=== PATIENT | female | born 1980 | race Caucasian/White ===

== ENCOUNTER 2018-08-02 05:30 | Day surgery (SDC) | payer BC ==
[2018-07-31 09:01] LABS: BASOPHILS 0.3 % (0-2); EOSINOPHILS 6.2 % (0-7); HEMATOCRIT 39.9 % (36.0-48.0); HEMOGLOBIN 13.1 g/dL (12-16); IMMATURE GRANULOCYTES 0.3 % (0-5); LYMPHOCYTES 29.5 % (15-50); MCH 30.6 pg (26.0-34.0); MCHC 32.8 g/dL (31.0-37.0); MCV 93.2 fL (80.0-100.0); MEAN PLATELET VOLUME 10.7 fL (7.4-10.4); MONOCYTES 7.6 % (2-11); NEUTROPHILS 56.1 % (40-80); PLATELET COUNT 230 10x3/uL (130-400); RBC 4.28 10x6/uL (4.00-5.40); RDW 12.5 % (11.5-14.5); WBC 7.3 10x3/uL (4.8-10.8)
[2018-07-31 09:10] LABS: CALC OSMOLALITY 277 mosm/kg (275-300); CALCIUM 8.6 mg/dL (8.5-10.1); CARBON DIOXIDE 24.9 mmol/L (21.0-32.0); CHLORIDE - SERUM 105 mmol/L (98-107); CREATININE - SERUM 0.7 mg/dL (0.6-1.3); GLUCOSE 99 mg/dL (74-106); POTASSIUM - SERUM 4.8 mmol/L (3.5-5.1); SODIUM 139 mmol/L (136-145); UREA NITROGEN 13 mg/dL (7-18); eGFR NON AFRICAN AMERICAN > 90 mL/min (90-120)
[~2018-08-02] VITALS: Ht 170.2 cm; Wt 66.2 kg
--- NOTE | ~2018-08-02 | OP ---
PATIENT NAME: MARGUERITE BOTELLO MEDICAL RECORD: [id number] :[birth year] LOCATION:D.OPS ADMISSION DATE: SURGEON: EVANGELISTA GORE MD DATE OF OPERATION: 08/02/2018 PREOPERATIVE DIAGNOSES: 1. Pelvic pain. 2. Abnormal uterine bleeding. 3. Endometriosis. POSTOPERATIVE DIAGNOSES: 1. Pelvic pain. 2. Abnormal uterine bleeding. 3. Endometriosis. PROCEDURE: Complex laparoscopic lysis of adhesions. SURGEON: Evangelista Gore MD CO-SURGEON: Dr. Hoffman and Dr. Cm. REPORT OF PROCEDURE: The patient was in the operating room at the time of consultation for thick pelvic adhesions of the rectum to the posterior aspect of the uterus. At the time of my entering the case, the patient already had three 5-mm trocars throughout the abdomen. At this point, I started dissection of the dense adhesions off the posterior aspect of the uterus. The adhesions were the peritoneum and the anterior aspect of the mid rectum. There was a very difficult dissection as there was hardly any plane at all between the rectum and the uterus. Eventually with dissection laterally, I was able to find a plane on the more distal aspect of the rectum and I could trace it back up to the uterus and rectum and was eventually able to find the area of tissue which appeared safe for resection. Once I did this, we had the area freed up distal to the cervix and this gave room for Dr. Hoffman to be able to continue the surgery. At this point, Dr. Cm entered the room and while he continues some dissection of the pelvis, I have inserted some anal dilators to assure there was no sign of any injury to the rectum. With manipulation of the rectum with the anal dilators in place, we did not see any evidence of any injury being present. At this point, we removed ourselves from the case and allowed Dr. Hoffman to continue with the laparoscopic hysterectomy. TRANSINT:[id number] Voice Confirmation ID: [id number] DOCUMENT ID: [id number] EVANGELISTA GORE MD CC: [id number] DICTATION DATE: 08/04/181646 ARCHITECTURAL DRAFTSMAN: 08/04/182230 [facility] 08/02/18 [address] [place] [address]
[~2018-08-02 05:30] MED LIST: ATIVAN1 MG PO; CELEXA20 MG PO; CYMBALTA30 MG PO; IBUPROFEN800 MG PO; MAXALT10 MG PO
[2018-08-02 06:21] VITALS: Ht 170.2 cm; Wt 66.2 kg
[2018-08-02 06:43] LABS: HCG URINE NEGATIVE (NEGATIVE)
== END 2018-08-02 17:20 | disposition home or self-care (01) ==
LOC: D.OPS 05:30 → D.PAN 07:30 → D.OPS 07:30
PROVIDERS: Obstetrics & Gynecology
DX: N85.2 Hypertrophy of uterus (principal); N88.2 Stricture and stenosis of cervix uteri; N70.11 Chronic salpingitis; N83.292 Other ovarian cyst, left side; N84.0 Polyp of corpus uteri; D25.9 Leiomyoma of uterus, unspecified; N93.8 Other specified abnormal uterine and vaginal bleeding; N80.3 Endometriosis of pelvic peritoneum; N73.6 Female pelvic peritoneal adhesions (postinfective); Z01.812 Encounter for preprocedural laboratory examination

== ENCOUNTER 2018-08-08 22:20 | Inpatient (IN) | payer BC ==
[~2018-08-08] VITALS: Ht 170.2 cm; Wt 66.4 kg
--- NOTE | ~2018-08-08 | MORECARE ---
CASE MANAGEMENT DISCHARGE SUMMARY PATIENT: MARGUERITE BOTELLO UNIT: [id number] ADM DATE: 08/09/18 AGE: 38 : [birth year] SEX: F ROOM/BED: D.2232 AUTHOR: NANCY,DOC PHYSICIAN: REFERRING PHYSICIAN: ZAMZAM SINGH MD DATE OF SERVICE: 08/14/18 Discharge Plan Patient Name: MARGUERITE BOTELLO Facility: [facility]:[place] : 1980 Planned Disposition: Home Anticipated Discharge Date: 08/12/18 Discharge Date: 08/11/2018 Expected LOS: 3 Initial Reviewer: [id number] Initial Review Date: 08/10/2018 Generated: 08/14/18 3:47 pm Comments DCP- Discharge Planning Updated by [email or web address]: Luiza Herndon on 08/10/18 7:[address] Patient Name: MARGUERITE BOTELLO Admission Status: ER Accout number: [id number] Admission Date: 08-09-2018 : 1980 Admission Diagnosis: Attending: ZAMZAM SINGH Current LOS: 1 Anticipated DC Date: 08-12-2018 Planned Disposition: Home Primary Insurance: [employer] O Discharge Planning Comments: CM MET WITH PATIENT AND HER MOTHER (CARMEN) REGARDING D/C NEEDS AND PLANS. PATIENTS MOTHER WILL DRIVE PATIENT HOME AT DISCHARGE. PATIENT WILL BE STAYING WITH HER MOTHER. PATIENT STATED SHE IS INDEPENDENT WITH HER CARE AND HAS NO DME. PATIENTS PCP IS DR. ZAMZAM SINGH AND USES [facility] [address] FOR HER PHARMACY. PATIENT REFUSED HOME HEALTH AT THIS TIME. CM WILL CONTINUE TO FOLLOW PATIENT WITH D/C NEEDS AND PLANS. [facility] [address] CARMEN SUAREZ ([facility] [place]) [phone] Kayaking Instructor: Luiza Herndon DCPIA - Discharge Planning Initial Assessment Updated by [email or web address]: Luiza Herndon on 08/10/18 8:32 pm * Is the patient Alert and Oriented? Yes * How many steps to enter\exit or inside your home? * PCP DR. ZAMZAM SINGH * Pharmacy [facility] [address] * Preadmission Environment Home Alone * ADLs Independent * Equipment None * List name and contact numbers for known caregivers / representatives who currently or will assist patient after discharge: CARMEN SUAREZ (MOTHER) [phone] * Verbal permission to speak to the caregivers and representatives has been obtained from the patient. Yes * Community resources currently utilized None * Additional services required to return to the preadmission environment? Yes * Can the patient safely return to the preadmission environment? Yes * Has this patient been hospitalized within the prior 30 days at any hospital? No Last DP export: 08/10/18 7:37 Patient Name: MARGUERITE BOTELLO Page [id number] at 1447 All edits/amendments must be made on the electronic document DICTATION DATE: 08/14/181446 RIGGING ENGINEER: KRISTY 08/14/181446 RPT#: [id number] DC DATE:08/11/18 STATUS: DIS IN [facility] [address] [place] [address] END OF REPORT
--- NOTE | ~2018-08-08 | MORECARE ---
CASE MANAGEMENT DISCHARGE SUMMARY PATIENT: MARGUERITE BOTELLO UNIT: [id number] ADM DATE: 08/09/18 AGE: 38 : [birth year] SEX: F ROOM/BED: D.2232 AUTHOR: RACHEL CRUZ PHYSICIAN: REFERRING PHYSICIAN: ZAMZAM SINGH MD DATE OF SERVICE: 08/10/18 Discharge Plan Patient Name: MARGUERITE BOTELLO Facility: [facility]:[place] : 1980 Planned Disposition: Home Anticipated Discharge Date: 08/12/18 Discharge Date: Expected LOS: 3 Initial Reviewer: [email or web address] Initial Review Date: 08/10/2018 Generated: 08/10/18 9:31 pm Patient Name: MARGUERITE BOTELLO Page 20493 at 2030 All edits/amendments must be made on the electronic document DICTATION DATE: 08/10/182030 HOSTEL PARENT: KRISTY 08/10/182030 RPT#: [id number] DC DATE: STATUS: ADM IN [facility] [address] [place] [address] END OF REPORT
--- NOTE | ~2018-08-08 | MORECARE ---
CASE MANAGEMENT DISCHARGE SUMMARY PATIENT: MARGUERITE BOTELLO UNIT: [id number] ADM DATE: 08/09/18 AGE: 38 : [birth year] SEX: F ROOM/BED: D.2232 AUTHOR: NANCY,DOC PHYSICIAN: REFERRING PHYSICIAN: ZAMZAM SINGH MD DATE OF SERVICE: 08/10/18 Discharge Plan Patient Name: MARGUERITE BOTELLO Facility: [facility]:[place] : 1980 Planned Disposition: Home Anticipated Discharge Date: 08/12/18 Discharge Date: Expected LOS: 3 Initial Reviewer: [email or web address] Initial Review Date: 08/10/2018 Generated: 08/10/18 9:37 pm Comments DCP- Discharge Planning Updated by [email or web address]: Luiza Herndon on 08/10/18 7:[address] Patient Name: MARGUERITE BOTELLO Admission Status: ER Accout number: [id number] Admission Date: 08-09-2018 : 1980 Admission Diagnosis: Attending: ZAMZAM SINGH Current LOS: 1 Anticipated DC Date: 08-12-2018 Planned Disposition: Home Primary Insurance: [employer] O Discharge Planning Comments: CM MET WITH PATIENT AND HER MOTHER (CARMEN) REGARDING D/C NEEDS AND PLANS. PATIENTS MOTHER WILL DRIVE PATIENT HOME AT DISCHARGE. PATIENT WILL BE STAYING WITH HER MOTHER. PATIENT STATED SHE IS INDEPENDENT WITH HER CARE AND HAS NO DME. PATIENTS PCP IS DR. ZAMZAM SINGH AND USES [facility] [address] FOR HER PHARMACY. PATIENT REFUSED HOME HEALTH AT THIS TIME. CM WILL CONTINUE TO FOLLOW PATIENT WITH D/C NEEDS AND PLANS. [facility] [address] CARMEN SUAREZ ([facility] [place] [phone] Technical Operator: Luiza Herndon DCPIA - Discharge Planning Initial Assessment Updated by [email or web address]: Luiza Herndon on 08/10/18 8:32 pm * Is the patient Alert and Oriented? Yes * How many steps to enter\exit or inside your home? * PCP DR. ZAMZAM SINGH * Pharmacy [facility] [address] * Preadmission Environment Home Alone * ADLs Independent * Equipment None * List name and contact numbers for known caregivers / representatives who currently or will assist patient after discharge: CARMEN SUAREZ (MOTHER) [phone] * Verbal permission to speak to the caregivers and representatives has been obtained from the patient. Yes * Community resources currently utilized None * Additional services required to return to the preadmission environment? Yes * Can the patient safely return to the preadmission environment? Yes * Has this patient been hospitalized within the prior 30 days at any hospital? No Last DP export: 08/10/18 7:31 Patient Name: MARGUERITE BOTELLO Page 83624 at 2038 All edits/amendments must be made on the electronic document DICTATION DATE: 08/10/182036 BIOLOGY MANAGER: KRISTY 08/10/182036 RPT#: [id number] DC DATE: STATUS: ADM IN [facility] [address] [place] [address] END OF REPORT
[2018-08-08 23:07] LABS: BASOPHILS 0.2 % (0-2); EOSINOPHILS 1.1 % (0-7); HEMATOCRIT 32.7 % (36.0-48.0); HEMOGLOBIN 10.9 g/dL (12-16); IMMATURE GRANULOCYTES 0.5 % (0-5); LYMPHOCYTES 7.9 % (15-50); MCH 30.3 pg (26.0-34.0); MCHC 33.3 g/dL (31.0-37.0); MCV 90.8 fL (80.0-100.0); MEAN PLATELET VOLUME 9.5 fL (7.4-10.4); MONOCYTES 8.9 % (2-11); NEUTROPHILS 81.4 % (40-80); RDW 12.2 % (11.5-14.5); WBC 19.7 10x3/uL (4.8-10.8)
[2018-08-08 23:12] LABS: PLATELET COUNT 462 10x3/uL (130-400)
[2018-08-08 23:22] LABS: ALBUMIN 2.6 g/dL (3.4-5.0); ANION GAP 16.3 mmol/L (8-16); BILIRUBIN - TOTAL 0.18 mg/dL (0.2-1.3); CALCIUM 8.8 mg/dL (8.5-10.1); CREATININE - SERUM 0.9 mg/dL (0.6-1.3); POTASSIUM - SERUM 4.3 mmol/L (3.5-5.1); PROTEIN - SERUM 7.5 g/dL (6.4-8.2)
[2018-08-09] VITALS (7 sets, daily range): BP systolic 98–138; BP diastolic 60–69; BMI 22.9
[2018-08-09 00:45] LABS: APPEARANCE CLEAR (CLEAR); COLOR YELLOW (YELLOW); SPECIFIC GRAVITY 1.005 (1.005-1.020)
[2018-08-09 00:46] LABS: BILIRUBIN NEGATIVE (NEGATIVE); GLUCOSE NEGATIVE (NEGATIVE); KETONE NEGATIVE (NEGATIVE); NITRITE NEGATIVE (NEGATIVE); PROTEIN NEGATIVE (NEGATIVE); UROBILINOGEN NORMAL (NORMAL)
[2018-08-09 00:54] LABS: BACTERIA FEW /hpf (NONE SEEN); EPITHELIAL CELLS 0-5 /hpf (0-5); MUCUS <1+ /lpf (NONE SEEN); RED CELLS - URINE 0-5 /hpf (0-5)
[2018-08-09 18:00] LABS: BASOPHILS 0.2 % (0-2); EOSINOPHILS 2.1 % (0-7); HEMATOCRIT 29.7 % (36.0-48.0); HEMOGLOBIN 9.4 g/dL (12-16); IMMATURE GRANULOCYTES 0.6 % (0-5); LYMPHOCYTES 17.3 % (15-50); MCH 29.5 pg (26.0-34.0); MCHC 31.6 g/dL (31.0-37.0); MEAN PLATELET VOLUME 9.4 fL (7.4-10.4); MONOCYTES 10.7 % (2-11); NEUTROPHILS 69.1 % (40-80); PLATELET COUNT 401 10x3/uL (130-400); RBC 3.19 10x6/uL (4.00-5.40); RDW 12.6 % (11.5-14.5); WBC 17.5 10x3/uL (4.8-10.8)
[2018-08-09 18:14] LABS: MCV 93.1 fL (80.0-100.0)
[2018-08-10] VITALS: BP 108/59
[2018-08-10 04:00] VITALS: BP 95/56
[2018-08-10 08:09] LABS: BASOPHILS 0.1 % (0-2); EOSINOPHILS 2.6 % (0-7); HEMATOCRIT 28.5 % (36.0-48.0); HEMOGLOBIN 9.2 g/dL (12-16); IMMATURE GRANULOCYTES 0.5 % (0-5); LYMPHOCYTES 22.5 % (15-50); MCH 29.5 pg (26.0-34.0); MCHC 32.3 g/dL (31.0-37.0); MCV 91.3 fL (80.0-100.0); MEAN PLATELET VOLUME 9.1 fL (7.4-10.4); MONOCYTES 8.8 % (2-11); NEUTROPHILS 65.5 % (40-80); PLATELET COUNT 444 10x3/uL (130-400); RBC 3.12 10x6/uL (4.00-5.40); RDW 12.7 % (11.5-14.5); WBC 14.6 10x3/uL (4.8-10.8)
[2018-08-10 08:17] LABS: CALCIUM 8.3 mg/dL (8.5-10.1); CARBON DIOXIDE 23.4 mmol/L (21.0-32.0); CHLORIDE - SERUM 107 mmol/L (98-107); CREATININE - SERUM 0.8 mg/dL (0.6-1.3); POTASSIUM - SERUM 4.1 mmol/L (3.5-5.1); SODIUM 141 mmol/L (136-145); eGFR NON AFRICAN AMERICAN 85 mL/min (90-120)
[2018-08-10 08:18] LABS: CALC OSMOLALITY 276 mosm/kg (275-300); GLUCOSE 84 mg/dL (74-106); UREA NITROGEN 5 mg/dL (7-18)
[2018-08-10 09:00] VITALS: BP 115/71
[2018-08-10 12:00] VITALS: BP 104/55
[2018-08-10 16:00] VITALS: BP 129/90
[2018-08-10 16:04] VITALS: Ht 170.2 cm; Wt 66.4 kg
[2018-08-10 20:00] VITALS: BP 103/50
[2018-08-11 04:00] VITALS: BP 107/60
[2018-08-11 06:17] LABS: CALC OSMOLALITY 281 mosm/kg (275-300); CARBON DIOXIDE 22.4 mmol/L (21.0-32.0); CHLORIDE - SERUM 108 mmol/L (98-107); CREATININE - SERUM 0.7 mg/dL (0.6-1.3); GLUCOSE 92 mg/dL (74-106); POTASSIUM - SERUM 4.1 mmol/L (3.5-5.1); SODIUM 143 mmol/L (136-145); UREA NITROGEN 5 mg/dL (7-18); eGFR NON AFRICAN AMERICAN > 90 mL/min (90-120)
[2018-08-11 06:30] LABS: BASOPHILS 0.3 % (0-2); EOSINOPHILS 4.9 % (0-7); HEMATOCRIT 25.9 % (36.0-48.0); HEMOGLOBIN 8.4 g/dL (12-16); IMMATURE GRANULOCYTES 0.8 % (0-5); LYMPHOCYTES 35.7 % (15-50); MCH 29.5 pg (26.0-34.0); MCHC 32.4 g/dL (31.0-37.0); MCV 90.9 fL (80.0-100.0); MEAN PLATELET VOLUME 9.6 fL (7.4-10.4); NEUTROPHILS 49.3 % (40-80); PLATELET COUNT 439 10x3/uL (130-400); RBC 2.85 10x6/uL (4.00-5.40); RDW 12.7 % (11.5-14.5)
[2018-08-11 06:39] LABS: WBC 9.9 10x3/uL (4.8-10.8)
[2018-08-11 08:51] VITALS: BP 104/48
[2018-08-11] MEDS ORDERED: IBUPROFEN800 MG PO (17:17)
[2018-08-11] MEDS ORDERED: PERCOCET 5-3251 TAB PO (17:18)
[2018-08-11] MEDS ORDERED: LEVAQUIN750 MG PO (17:18)
[2018-08-11] MEDS ORDERED: FLAGYL500 MG PO (17:18)
[2018-08-11] MEDS ORDERED: ZOFRAN8 MG PO (17:19)
[2018-08-12 08:13] LABS: IMMUNOGLOBULIN A 298 mg/dL (87-352); IMMUNOGLOBULIN G 457 mg/dL (700-1600); IMMUNOGLOBULIN M 173 mg/dL (26-217)
[2018-08-12 16:08] LABS: CHLAMYDIA TRACHOMATIS, NAA Negative (Negative)
[2018-08-14 13:12] LABS: IMMUNOGLOBULIN E 96 IU/mL (0-100)
== END 2018-08-11 19:28 | disposition home or self-care (01) | DRG 863 ==
LOC: D.ER 22:20 → D.EDHOLD 08-09 01:03 → D.MS 08-09 01:03
PROVIDERS: Family Medicine; Obstetrics & Gynecology; Student in an Organized Health Care Education/Training Program
DX: T81.43XA Infection following a procedure, organ and space surgical site, initial encounter (principal); N73.0 Acute parametritis and pelvic cellulitis; N39.0 Urinary tract infection, site not specified

== ENCOUNTER → 2018-08-16 15:16 | Outpatient (CLI) | payer BC ==
[2018-08-10 16:04] VITALS: BMI 22.9
[~2018-08-16 15:16] MED LIST changes: +FLAGYL500 MG PO; +LEVAQUIN750 MG PO; +PERCOCET 5-3251 TAB PO; +ZOFRAN8 MG PO
== END | disposition home or self-care (01) ==
LOC: D.CT 15:16
DX: K65.1 Peritoneal abscess (principal)

== ENCOUNTER → 2018-08-25 13:57 | Outpatient (CLI) | payer BC ==
[2018-08-10 16:04] VITALS: BMI 22.9
== END | disposition home or self-care (01) ==
LOC: D.CT 08-24 14:30
DX: K65.1 Peritoneal abscess (principal)